=== PATIENT | female | born 1980 | race Two or more races ===

== ENCOUNTER 2017-09-30 13:35 | Emergency (ER) | payer SELFPAY ==
[2017-09-30] MEDS ORDERED: LIDOCAINE 1% PF 2 ML VIAL. (14:12)
[2017-09-30] MEDS: LIDOCAINE 2% 20 ML VIAL. IJ (14:26)
[2017-09-30] MEDS: DIPHTH,PERTUSS(ACELL),TET TOX 0.5 ML DISP.SYRIN. VAX IM (14:27)
== END 2017-09-30 14:50 | disposition home or self-care (01) ==
LOC: ER 13:35
DX: S51.812A Laceration without foreign body of left forearm, initial encounter (principal); W01.198A Fall on same level from slipping, tripping and stumbling with subsequent striking against other object, initial encounter; Y93.89 Activity, other specified; Y99.8 Other external cause status; Y92.89 Other specified places as the place of occurrence of the external cause
CPT/HCPCS: 12002; 90471; 90715; 99283-25